=== PATIENT | male | born 1960 | race Caucasian/White ===

== ENCOUNTER 2017-11-25 21:15 | Emergency (ER) | payer OTHER ==
[~2017-11-25] VITALS: Ht 188 cm; Wt 146.0 kg
[2017-11-25] MEDS ORDERED: CEPH500C5 PO (21:51)
[2017-11-25] MEDS ORDERED: SULF1TAB49 PO (21:51)
[2017-11-25 22:01] VITALS: BP 152/90
== END 2017-11-25 22:07 ==
LOC: ER 21:17
DX: L03.116 Cellulitis of left lower limb (principal); G89.29 Other chronic pain; Z88.8 Allergy status to other drugs, medicaments and biological substances; Z79.899 Other long term (current) drug therapy
CPT/HCPCS: 99283; A6449

== ENCOUNTER 2021-05-17 20:14 | Emergency (ER) | payer OTHER ==
[~2021-05-17] VITALS: Ht 188 cm; Wt 140.0 kg
[2021-05-17 20:39] VITALS: BP 157/97
[2021-05-17] MEDS ORDERED: ALBU8HFA PO (21:48)
[2021-05-17] MEDS ORDERED: BENZ-16 PO (21:48)
[2021-05-17] MEDS ORDERED: DEXA6TAB6 PO (21:48)
[2021-05-17] MEDS ORDERED: dexamethasone 4mg tablet PO ONE (22:00)
== END 2021-05-17 22:10 | disposition home or self-care (01) ==
LOC: ER 20:15
DX: U07.1 COVID-19 (principal); R50.9 Fever, unspecified; G89.29 Other chronic pain; Z98.890 Other specified postprocedural states; Z86.19 Personal history of other infectious and parasitic diseases; Z88.8 Allergy status to other drugs, medicaments and biological substances; Z79.899 Other long term (current) drug therapy
CPT/HCPCS: 87635; 93005; 99284; C9803